=== PATIENT | male | born 1995 | race Caucasian/White ===

== ENCOUNTER 2020-12-22 08:05 | Day surgery (SDC) | payer BC ==
[2020-12-22 08:39] LABS: Absolute Lymphocytes (CBC) 2.1 K/uL (0.7-4.9); Basophils % 0.5 % (0-1.3); Hematocrit 39.9 % (39.6-49.0); Lymphocytes % 23.1 % (15.3-44.8); MPV 8.3 fL (7.6-11.3); RBC Red Blood Cell Count 4.64 M/uL (4.33-5.43)
[2020-12-22] MEDS ORDERED: BUPIVACAINE 0.5% PF 10 ML VIAL ONE (08:44)
[2020-12-22] MEDS ORDERED: Ringers Lactate 1,000 ML IV ONE (08:46)
[2020-12-22] MEDS ORDERED: CEFAZOLIN/SWI 1gm 1 GM/10 ML SYR ONE (08:46)
[2020-12-22] MEDS ORDERED: propofoL 200 MG/20 ML VIAL IV ONE (09:01)
[2020-12-22] MEDS ORDERED: FENTANYL CITR 100 MCG/2 ML ONE (09:01)
[2020-12-22] MEDS ORDERED: dexAMETHasone 10 MG/ML VIAL ONE (09:02)
[2020-12-22] MEDS ORDERED: MIDAZOLAM HCL 2 MG/2 ML INJ ONE (09:02)
[2020-12-22] MEDS ORDERED: LIDOCAINE 2% MPF 5 ML VIAL ONE (09:02)
[2020-12-22] MEDS ORDERED: KETOROLAC 30 MG/ML INJ ONE (09:33)
--- NOTE | 2020-12-22 11:22 | OP ---
Date of Procedure: 12/22/2020 Surgeon: Crow Wright MD Preoperative Diagnosis: Left posterior scalp abscess and cellulitis. Postoperative Diagnosis: Left posterior scalp abscess and cellulitis. Procedure: Incision and drainage and debridement of posterior scalp abscess. Estimated Blood Loss: Minimal. Specimen: Pus and cyst content. Finding: As above. Anesthesia: General. Complications: None. Disposition: The patient tolerated the procedure in stable condition and taken to Recovery in good g eneral condition. Procedure In Detail: The patient was brought to the OR and placed in supine position. General anest hesia begun. The patient was placed in the right lateral position, prepped and draped in usual steri le fashion. Marcaine 0.5% infiltrated locally. A 15-blade was used to make an approximately 5 x 1 c m ellipse of skin incision. Subcutaneous tissue was divided. Pus under pressure evacuated and then cyst contents were all excised and sent to Pathology as specimen. Wound was irrigated. Bleeding was controlled with cautery. There was a large cavity present. So at this time, we put just a few 3-0 n ylon sutures and left space in between the sutures open for packing and wet-to-dry normal saline dres sing changes applied. The patient tolerated the procedure in stable condition and taken to Recovery in good general condition. Discharge Note: The patient will go to Day Surgery and home when stable. Disposition: Home. Condition: Stable. Discharge Instructions: Resume home medications and diet. Activity as tolerated. Wet-to-dry normal saline dressing changes daily. Continue antibiotics as ordered. Tylenol No.3 one tablet p.o. q.4 p .r.n. pain. Wet-to-dry as ordered. Follow up in my office in a week. Call for appointment. TANNER/MODL Voice ID: [id number] Report ID: [id number]
[2020-12-22] MEDS ORDERED: CODEINE 30MG/APAP 300MG TAB PO ONE (11:25)
[2020-12-22 12:10] VITALS: BP 110/63; TEMP 97; O2SAT 100
== END 2020-12-22 11:48 | disposition home or self-care (01) ==
LOC: OR 08:05
PROVIDERS: ATTEND Surgery
PROC: 0J900ZZ Drainage of Scalp Subcutaneous Tissue and Fascia, Open Approach (ICD-10-PCS; principal; 2020-12-22 09:00)
DX: L72.0 Epidermal cyst (principal); L03.811 Cellulitis of head [any part, except face]; Z20.822 Contact with and (suspected) exposure to COVID-19
CPT/HCPCS: 87070; 85025; 36415; 87205; 88304; 87075; 10060; U0003; J2704; J2250; J3010; J1100; J0690; J7120; 88305